=== PATIENT | male | born 1940 | race African-American/Black ===

== ENCOUNTER → 2017-02-03 | Outpatient (CLI) | payer MEDICARE, BC ==
[2017-02-03 14:35] LABS: ALANINE AMINOTRANSFERASE 35 U/L (21-72); ALBUMIN 4.2 g/dL (3.5-5.0); ALKALINE PHOSPHATASE 75 U/L (38-126); ANION GAP 12 (5-19); ASPARTATE AMINO TRANSFERASE 24 U/L (17-59); BILIRUBIN,DIRECT 0.3 mg/dL (0.0-0.4); BILIRUBIN,TOTAL 0.6 mg/dL (0.2-1.3); BLOOD UREA NITROGEN 10 mg/dL (7-20); CALCIUM 9.6 mg/dL (8.4-10.2); CARBON DIOXIDE 26 mmol/L (22-30); CHLORIDE 105 mmol/L (98-107); CHOLESTEROL 123.73 mg/dL (0-200); Direct HDL 34 mg/dL (>40); GLUCOSE 95 mg/dL (75-110); POTASSIUM 4.5 mmol/L (3.6-5.0); TOTAL PROTEIN 7.4 g/dL (6.3-8.2); TRIGLYCERIDES 83 mg/dL (<150)
[2017-02-03 14:48] LABS: DIRECT LDL 75 mg/dL (<100)
== END ==
LOC: OD 13:05
PROVIDERS: ATTEND Internal Medicine
DX: I25.10 Atherosclerotic heart disease of native coronary artery without angina pectoris (principal); I10 Essential (primary) hypertension; Z98.61 Coronary angioplasty status; E78.4 Other hyperlipidemia; R94.31 Abnormal electrocardiogram [ECG] [EKG]; I34.0 Nonrheumatic mitral (valve) insufficiency; E78.5 Hyperlipidemia, unspecified; Z79.899 Other long term (current) drug therapy
CPT/HCPCS: 36415; 80053; 80061

== ENCOUNTER → 2017-09-26 | Outpatient (CLI) | payer MEDICARE, BC ==
--- NOTE | 2017-09-26 16:05 | RADIOLOGY REPORT (SQ) ---
EXAM DESCRIPTION: CT ABD/PELVIS WITH IV ORAL COMPLETED DATE/TIME: 09/26/2017 3:39 pm REASON FOR STUDY: PROSTATE CA C61 MALIGNANT NEOPLASM OF PROSTATE COMPARISON: CT abdomen pelvis 12/29/2013, 03/23/2014, 01/17/2015 TECHNIQUE: CT scan of the abdomen and pelvis performed using helical scanning technique with dynamic intravenous contrast injection. Patient drank oral contrast. Images reviewed with lung, soft tissue , and bone windows. Reconstructed coronal and sagittal MPR images reviewed. Delayed images for evalua tion of the urinary system also acquired. All images stored on PACS. All CT scanners at this facility use dose modulation, iterative reconstruction, and/or weight based d osing when appropriate to reduce radiation dose to as low as reasonably achievable (ALARA). [facility]: Dose Right [facility]: CareDose [facility]: Dose Right [facility]: Teradose 4D [facility]: Phizzbo CONTRAST TYPE AND DOSE: contrast/concentration: Isovue 370.00 mg/ml; Total Contrast Delivered: 90.0 ml; Total Saline Delivered: 70.0 ml RENAL FUNCTION: Creatinine 1.0 RADIATION DOSE: CT Rad equipment meets quality standard of care and radiation dose reduction techniq ues were employed. CTDIvol: 6.9 - 8.1 mGy. DLP: 776 mGy-cm.. LIMITATIONS: None. FINDINGS: LOWER CHEST: Moderate coronary artery calcifications. Lung bases are clear. LIVER: Normal size. Unchanged 3 cm hemangioma right lobe liver image 21. No dilated ducts. SPLEEN: Normal size. No focal lesions. PANCREAS: No masses. No significant calcifications. No adjacent inflammation or peripancreatic fluid collections. Pancreatic duct not dilated. GALLBLADDER: No identified stones by CT criteria. No inflammatory changes to suggest cholecystitis. ADRENAL GLANDS: No significant masses or asymmetry. RIGHT KIDNEY AND URETER: No solid masses. No significant calcifications. No hydronephrosis or hyd roureter. LEFT KIDNEY AND URETER: No solid masses. No significant calcifications. No hydronephrosis or hydr oureter. AORTA AND VESSELS: No aneurysm. No dissection. Calcified visceral artery origins without high-grade stenosis. RETROPERITONEUM: No retroperitoneal adenopathy, hemorrhage or masses. BOWEL AND PERITONEAL CAVITY: Patient drank oral contrast. No CT evidence of bowel obstruction. Desc ending and sigmoid colon diverticuli without CT signs of acute diverticulitis. No free intraperitone al air or fluid. APPENDIX: Normal. PELVIS: Prostate is enlarged, 8 x 7 cm in size. There is subtle left bladder trigone wall thickening on axial image 75, new compared to previous studies. 1 cm right bladder diverticulum just superior to the right ureteral orifice into the bladder. No pelvic adenopathy. No free fluid. ABDOMINAL WALL: Intact right inguinal hernia repair BONES: Degenerative anterolisthesis grade 1, at the L4-5 level. Retrolisthesis of L2 over L3 related to facet arthropathy OTHER: No other significant finding. IMPRESSION: No CT evidence of metastatic disease given history prostate cancer Asymmetric leftward posterior bladder wall thickening, question recurrent bladder malignancy TECHNICAL DOCUMENTATION: JOB ID: [id number] Quality ID # 436: Final reports with documentation of one or more dose reduction techniques (e.g., Au tomated exposure control, adjustment of the mA and/or kV according to patient size, use of iterative reconstruction technique) 2010 [employer]- All Rights Reserved Reading location - IP/workstation name: [facility]
== END ==
LOC: RAD 14:50
PROVIDERS: ATTEND Urology
DX: C61 Malignant neoplasm of prostate (principal)
CPT/HCPCS: 74177; 82565

== ENCOUNTER → 2017-12-01 | Outpatient (CLI) | payer MEDICARE, BC ==
--- NOTE | 2017-12-01 12:09 | RADIOLOGY REPORT (SQ) ---
EXAM DESCRIPTION: CT CHEST WITH; CT ABD/PELVIS WITH IV ONLY COMPLETED DATE/TIME: 12/01/2017 10:16 am REASON FOR STUDY: PROSTATE CA (C61) C61 MALIGNANT NEOPLASM OF PROSTATE COMPARISON: CT abdomen and pelvis 09/26/2017, 01/17/2015 CT chest 03/23/2014 CONTRAST TYPE AND DOSE: contrast/concentration: Isovue 370.00 mg/ml; Total Contrast Delivered: 89.0 ml; Total Saline Delivered: 70.0 ml RENAL FUNCTION: Creatinine 0.96 TECHNIQUE: CT scan of the chest performed using helical scanning technique with dynamic intravenous contrast injection. Images reviewed with lung, soft tissue and bone windows. Reconstructed coronal a nd sagittal MPR images reviewed. All images stored on PACS. CT scan of the abdomen and pelvis performed with intravenous and without oral contrastusing helical s criss technique with dynamic intravenous contrast injection. Images reviewed with lung, soft tissu e and bone windows. Reconstructed coronal and sagittal MPR images reviewed. Delayed images for eval uation of the urinary system also acquired and evaluated. All images stored on PACS. All CT scanners at this facility use dose modulation, iterative reconstruction, and/or weight based d osing when appropriate to reduce radiation dose to as low as reasonably achievable (ALARA). [facility]: Dose Right [facility]: CareDose [facility]: Dose Right [facility]: Teradose 4D [facility]: Smart ElectroJet RADIATION DOSE: CT Rad equipment meets quality standard of care and radiation dose reduction techniq ues were employed. CTDIvol: 5.9 - 6.1 mGy. DLP: 912 mGy-cm. . LIMITATIONS: None. FINDINGS: CHEST: LUNGS AND PLEURA: No opacities, nodules, masses. No pneumothorax. No effusions. HILAR AND MEDIASTINAL STRUCTURES: No identified masses or abnormal nodes. HEART AND VASCULAR STRUCTURES: No aneurysm or dissection. No central pulmonary emboli. No pericardi al effusion. Heavy coronary artery calcification. HARDWARE: None. THYROID AND OTHER SOFT TISSUES: No masses. No adenopathy. BONES: No significant finding. OTHER: No other significant finding. ABDOMEN AND PELVIS: LIVER: Benign 3 x 2 cm hemangioma right lobe liver unchanged from 2014. Liver normal size. No bilia ry ductal dilatation SPLEEN: Normal size. No focal lesions. PANCREAS: No masses. No significant calcifications. No adjacent inflammation or peripancreatic fluid collections. Pancreatic duct not dilated. GALLBLADDER: No identified stones by CT criteria. No inflammatory changes to suggest cholecystitis. ADRENAL GLANDS: Right adrenal gland unremarkable. Fatty benign 2.6 by 3.2 cm left adrenal nodule, un changed from 2014. RIGHT KIDNEY AND URETER: No solid masses. No significant calcification. No hydronephrosis or hydroure ter. LEFT KIDNEY AND URETER: No solid masses. No significant calcification. No hydronephrosis or hydrouret er. AORTA AND VESSELS: No aneurysm. No dissection. Atherosclerotic visceral artery calcifications. RETROPERITONEUM: No retroperitoneal adenopathy, hemorrhage or masses. BOWEL AND PERITONEAL CAVITY: No masses or inflammatory changes. No free fluid or peritoneal masses. Multiple descending and sigmoid colon diverticuli without CT signs of acute diverticulitis APPENDIX: Normal. ABDOMINAL WALL: No masses. No hernias. PELVIS: Enlarged prostate, 7.3 x 6.4 x 6.3 cm in size. No bladder calculi. No pelvic adenopathy or free fluid BONES: Central canal stenosis at L4-5 related to facet arthropathy and grade 1 anterolisthesis. Punc barriga foci of sclerosis in the left innominate bone axial image 88 and left acetabular roof axial imag e 73, possibly tiny bony metastatic lesions given history of prostate malignancy. These are new comp ared to the images from 2014 and stable compared to September 2017. OTHER: No other significant finding. IMPRESSION: Enlarged prostate. Less than 5 mm foci of sclerosis in the left innominate bone and dee dee tabular roof likely tiny bony metastatic lesions No CT evidence of metastatic disease to the chest NORMAL CT OF THE ABDOMEN AND PELVIS WITH ORAL AND INTRAVENOUS CONTRAST. TECHNICAL DOCUMENTATION: JOB ID: [id number] Quality ID # 436: Final reports with documentation of one or more dose reduction techniques (e.g., Au tomated exposure control, adjustment of the mA and/or kV according to patient size, use of iterative reconstruction technique) 2010 [employer]- All Rights Reserved Reading location - IP/workstation name: [facility]
--- NOTE | 2017-12-01 12:59 | RADIOLOGY REPORT (SQ) ---
EXAM DESCRIPTION: NM WHOLE BODY BONE SCAN COMPLETED DATE/TIME: 12/01/2017 12:06 pm REASON FOR STUDY: PROSTATE CA (C61 C61 MALIGNANT NEOPLASM OF PROSTATE COMPARISON: 08/16/2013 RADIONUCLIDE AND DOSE: 20 millicuries Tc99m HDP. The route of agent administration: Intravenous. ADDITIONAL DRUGS AND DOSES: None. TECHNIQUE: Routine delayed images at 3 hours post radionuclide injection acquired of the bony skelet on including anterior and posterior whole-body projections and additional focused images as needed. LIMITATIONS: None. FINDINGS: BONES: There is mild degenerative uptake in the shoulders, wrists, and left knee. There i s a right knee arthroplasty. The overall appearance of the scan does not suggest metastatic disease to bone. KIDNEYS: Symmetric excretion without obstruction. OTHER: No other significant finding. IMPRESSION: There are areas of degenerative uptake. There is no evidence of metastatic disease to b one. COMMENT: Quality measure 147: Current bone scan is compared with any available plain radiographs, p rior bone scans, and CT/MRI. TECHNICAL DOCUMENTATION: JOB ID: [id number] [employer]- All Rights Reserved Reading location - IP/workstation name: [email or web address]
== END ==
LOC: RAD 08:27
PROVIDERS: ATTEND Internal Medicine
DX: C61 Malignant neoplasm of prostate (principal)
CPT/HCPCS: 78306; 71260; 74177; A9561; Q9969

== ENCOUNTER 2019-07-16 05:15 | Emergency (ER) | payer MEDICARE, BC ==
[2019-07-16] MEDS ORDERED: OXYCODONE-ACETAMINOPHEN 5-325 MG TABLET PO ONE (06:46)
[2019-07-16] MEDS ORDERED: PREDNISONE 20 MG TABLET PO ONE (06:46)
[2019-07-16 07:31] LABS: ABSOLUTE EOSINOPHILS # (AUTO) 0.1 10^3/uL (0.0-0.6); ABSOLUTE LYMPHOCYTES (AUTO) 1.3 10^3/uL (0.5-4.7); ABSOLUTE MONOCYTES (AUTO) 0.8 10^3/uL (0.1-1.4); ABSOLUTE NEUT (AUTO) 5.8 10^3/uL (1.7-8.2); BASOPHILS % (AUTO) 0.5 % (0-2); EOSINOPHILS % (AUTO) 1.7 % (0-6); HEMATOCRIT 40.9 % (37.9-51.0); HEMOGLOBIN 13.8 g/dL (13.5-17.0); LYMPHOCYTES % (AUTO) 15.7 % (13-45); MEAN CORPUSCULAR HEMOGLOBIN 29.9 pg (27.0-33.4); MEAN CORPUSCULAR HGB CONC 33.7 g/dL (32.0-36.0); MEAN CORPUSCULAR VOLUME 89 fl (80-97); MONOCYTES % (AUTO) 10.2 % (3-13); PLATELET COUNT 179 10^3/uL (150-450); RED BLOOD COUNT 4.61 10^6/uL (4.35-5.55); RED CELL DISTRIBUTION WIDTH 13.2 % (11.5-14.0); SEGMENTED NEUTROPHILS % (AUTO) 71.9 % (42-78); TOTAL CELLS COUNTED % (AUTO) 100 %
[2019-07-16 07:47] LABS: ALBUMIN 4.4 g/dL (3.5-5.0); ALKALINE PHOSPHATASE 73 U/L (38-126); ANION GAP 10 (5-19); ASPARTATE AMINO TRANSFERASE 27 U/L (17-59); BILIRUBIN,DIRECT 0.1 mg/dL (0.0-0.4); BILIRUBIN,TOTAL 0.6 mg/dL (0.2-1.3); BLOOD UREA NITROGEN 11 mg/dL (7-20); C-REACTIVE PROTEIN 8.4 mg/L (<10.0); CALCIUM 9.6 mg/dL (8.4-10.2); CARBON DIOXIDE 29 mmol/L (22-30); CHLORIDE 102 mmol/L (98-107); GLUCOSE 108 mg/dL (75-110); POTASSIUM 4.4 mmol/L (3.6-5.0); TOTAL PROTEIN 7.5 g/dL (6.3-8.2); URIC ACID 6.7 mg/dL (3.5-8.5)
--- NOTE | 2019-07-16 07:52 | ER Document Report ---
Entered by ESTHELA GUPTA SCRIBE 07/16/19 0638 Acting as scribe for:TYRONE VIEIRA MD ED Extremity Problem, Lower - General Chief Complaint: Foot Pain Stated Complaint: LEFT FOOT PAIN Time Seen by Provider: 07/16/19 06:33 Primary Care Provider: CLARK ELLIS MD [Primary Care Provider] - 07/19/19 Mode of Arrival: Ambulatory Information source: Patient Notes: This 78 year old male patient presents to the ED with complaints of foot pain near his 1st MTP joint on his left foot since x1 day ago. Patient reports that x2 days ago, he had knee pain and he adjusted his walk to prevent further pain; however, yesterday morning his foot started hurting when he woke up and the knee pain was resolved. TRAVEL OUTSIDE OF THE [place] IN LAST 30 DAYS: No - Related Data Allergies/Adverse Reactions: Shellfish * [Shellfish] Allergy (Verified 08/17/13 10:38) swelling of lips Home Medications: amilodipine. metoprolol. 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 Past Surgical History: Reports: Hx Herniorrhaphy, Hx Inguinal Hernia - Immunizations Hx Diphtheria, Pertussis, Tetanus Vaccination: Yes Review of Systems - Review of Systems Constitutional: No symptoms reported EENT: No symptoms reported Cardiovascular: No symptoms reported Respiratory: No symptoms reported Gastrointestinal: No symptoms reported Genitourinary: No symptoms reported Musculoskeletal: See HPI, Other - knee pain and foot pain Skin: No symptoms reported Hematologic/Lymphatic: No symptoms reported Neurological/Psychological: No symptoms reported -: Yes All other systems reviewed and negative Physical Exam - Vital signs Vitals: Temp Pulse BP Pulse Ox 98.6 F 60 147/53 H 96 07/16/19 05:20 07/16/19 05:20 07/16/19 05:20 07/16/19 05:20 - General General appearance: Appears well, Alert - HEENT Head: Normocephalic, Atraumatic Eyes: Normal Pupils: PERRL - Respiratory Respiratory status: No respiratory distress Chest status: Nontender Breath sounds: Normal Chest palpation: Normal - Cardiovascular Rhythm: Regular Heart sounds: Normal auscultation Murmur: No - Abdominal Inspection: Normal Distension: No distension Bowel sounds: Normal Tenderness: Nontender Organomegaly: No organomegaly - Back Back: Normal, Nontender - Extremities General upper extremity: Normal inspection General lower extremity: Tender, Edema, Other - bunions developing bilaterally Foot: Tender - 1st MTP joint tender with palpation, Edema - 1st MTP joint, Other - erythema over 1st MTP joint - Neurological Neuro grossly intact: Yes - Psychological Associated symptoms: Normal affect, Normal mood - Skin Skin Temperature: Warm Skin Moisture: Dry Skin Color: Normal Course - Re-evaluation Re-evalutation: 07/16/19 08:57 P White blood cell count is not elevated to suggest an infectious process. The uric acid sed rate and CRP are not elevated as would normally be expected with gout, however the physical exam, history, and the x-rays are all most suggestive of gout. - Vital Signs Vital signs: Temp Pulse Resp BP Pulse Ox 98.3 F 65 16 137/64 H 96 07/16/19 09:40 07/16/19 09:40 07/16/19 09:40 07/16/19 09:40 07/16/19 09:40 - Laboratory Result Diagrams: 07/16/19 07:10 07/16/19 07:10 - Diagnostic Test Radiology reviewed: Image reviewed, Reports reviewed - X-ray left first MTP joint shows a mild hallux valgus deformity with soft tissue swelling, small subchondral cysts, most likely secondary to gout. Discharge - Discharge Clinical Impression: Gout attack Qualifiers: Gout site: toe Gout etiology: unspecified cause Laterality: left Qualified Code(s): M10.9 - Gout, unspecified Condition: Stable Disposition: HOME, SELF-CARE Additional Instructions: Gout You have been diagnosed as having gout. Gout is a problem caused by an excess of uric acid, a natural chemical found in the body. The cause of this disease is unknown. Gout arthritis occurs when crystals of uric acid form in the joints. The big toe is the most common joint involved, but any joint can become affected. Persons with gout may also form uric acid kidney stones, resulting in flank pain and blood in the urine. Nodules of uric acid may form under the skin. The first step of treatment is to decrease the inflammation in the joint with antiinflammatory medication. Medication to lower the uric acid level in the blood may then be prescribed. This medication should be taken regularly, as any sudden change in dosage may provoke an attack of gout. Some foods, such as red meat, can provoke an attack in some gout sufferers. Call the doctor if new symptoms arise, or if you do not improve. Your physical exam, history, and x-rays are most consistent with gout. Take the medications as prescribed--start taking the prednisone tomorrow on Friday. You have already had today's dose here in the emergency room.. Drink plenty of fluids. Elevate the left foot as much as possible. Limit walking on the left foot as much as possible. Follow-up with Dr. Ellis on Friday for recheck--call today to schedule an appointment. RETURN TO THE EMERGENCY ROOM IF ANY NEW OR WORSENING SYMPTOMS. Prescriptions: Prednisone [Deltasone 10 mg Tablet] 10 mg PO ASDIR PRN #21 tablet PRN Reason: Oxycodone HCl/Acetaminophen [Percocet 5-325 mg Tablet] 1 tab PO ASDIR PRN #12 tablet PRN Reason: Referrals: CLARK ELLIS MD [Primary Care Provider] - 07/19/19 Scribe Attestation: 07/16/19 07:55 I personally performed the services described in the documentation, reviewed and edited the documentation which was dictated to the scribe in my presence, and it accurately records my words and actions. I personally performed the services described in the documentation, reviewed and edited the documentation which was dictated to the scribe in my presence, and it accurately records my words and actions.
[2019-07-16 08:22] LABS: ERYTHROCYTE SEDIMENTATION RATE 11 mm/hr (0-20)
--- NOTE | 2019-07-16 08:48 | RADIOLOGY REPORT (SQ) ---
EXAM DESCRIPTION: TOE LEFT COMPLETED DATE/TIME: 07/16/2019 8:14 am REASON FOR STUDY: 1st MTP joint red, swelling COMPARISON: None. NUMBER OF VIEWS: Three views. TECHNIQUE: AP, lateral, and oblique images acquired of the left first toe. LIMITATIONS: None. FINDINGS: MINERALIZATION: Normal. BONES: Hallux valgus deformity. No fracture or dislocation. JOINTS: Hyperostosis involving the head of the 1st metatarsal. Small subchondral cysts. SOFT TISSUES: Soft tissue swelling surrounding the 1st metatarsal phalangeal joint. OTHER: No other significant finding. IMPRESSION: Mild hallux valgus deformity. Soft tissue swelling. Small subchondral cysts. Most lik marcus secondary to gout. COMMENT: SITE OF TRAUMA/COMPLAINT MARKED/STAMP COMPLETED: NOT APPLICABLE. TECHNICAL DOCUMENTATION: JOB ID: [id number] [employer]- All Rights Reserved Reading location - IP/workstation name: [email or web address]
[2019-07-16] MEDS ORDERED: COLCHICINE 0.6 MG TABLET PO ONE (08:53)
[2019-07-16 10:22] VITALS: BP 137/64
== END 2019-07-16 09:54 | disposition home or self-care (01) ==
LOC: ER 05:15
DX: M10.9 Gout, unspecified (principal); M79.672 Pain in left foot; E78.00 Pure hypercholesterolemia, unspecified; I10 Essential (primary) hypertension; Z91.013 Allergy to seafood
CPT/HCPCS: 99283; 36415; 84550; 85025; 85652; 86140; 80053; 73660; A9270 ×3; J7512